=== PATIENT | male | born 1960 | race Caucasian/White ===

== ENCOUNTER → 2016-08-08 | Outpatient (CLI) | payer OTHER ==
[~2016-08-08] MED LIST: GADAVIST IV PRN
[2016-08-08 10:42] LABS: BASO % 0.1 %; BASO ABS # 0.01 K/uL (0-0.2); COMPLETE YES; HEMATOCRIT 47.1 % (42-52); IG% 0.4 %; LYMPH % 8.1 %; LYMPH ABS # 1.22 K/uL (1.2-3.4); MEAN CELL VOLUME 85.5 fL (80-100); MEAN CORPUSCULAR HEMOGLOBIN 29.6 pg (25-34); MEAN CORPUSCULAR HGB CONC 34.6 g/dl (32-36); MEAN PLATELET VOLUME 9.7 fL (7.4-10.4); MONO % 3.5 %; NEUT % 87.9 %; PLATELET COUNT 286 K/uL (130-400); RED BLOOD COUNT 5.51 M/uL (4.7-6.1); WHITE BLOOD COUNT 14.97 K/uL (4.8-10.8)
--- NOTE | 2016-08-08 11:24 | DIAGNOSTIC IMAGING REPORT ---
MRI brain BRAIN COMBO FOR IAC CLINICAL HISTORY: Sensorineural hearing loss TECHNIQUE: Multiaxial MRI acquisition. COMPARISON STUDY: None FINDINGS: Signal characteristics indicate several foci of increased signal within the periventricular deep white matter regions. This is seen within the deep white matter regions as well as the optic radiations. Given the patient's age this is most consistent with that of chronic small vessel change. Postcontrast images are considered negative for an enhancing lesion. Internal auditory canals are symmetric. Sella and parasellar regions are unremarkable. IMPRESSION: 1. Moderate chronic small vessel change throughout both cerebral hemispheres. 2. No evidence for an acute ischemic insult. 3. Otherwise negative MRI of the brain and internal auditory canals. Electronically signed by: Solitario Rolon M.D. 08/08/2016 11:23 AM Dictated Date/Time: 08/08/2016 11:13 AM
[2016-08-08 11:49] LABS: LYME DISEASE AB IGG NEG (NEG); LYME DISEASE AB IGM NEG (NEG)
== END | disposition home or self-care (01) ==
LOC: C.MRI 09:34
DX: H91.20 Sudden idiopathic hearing loss, unspecified ear (principal)